=== PATIENT | male | born 1995 | race Caucasian/White ===

== ENCOUNTER 2016-11-22 00:54 | Emergency (ER) | payer OTHER ==
[2016-11-22 01:31] VITALS: BP 133/83
--- NOTE | 2016-11-22 02:53 | ED ---
Head Injury - HPI Summary HPI Summary: Patient was drinking alcohol and suffered a mechanical fall with subsequent right facial laceration. Denies LOC, N, V, NELSON, diplopia. No allev factors. TDAP is UTD. - History Of Current Complaint Chief Complaint: EDLacSutureRecheck Stated Complaint: HEAD LAC/FALL Time Seen by Provider: 11/22/16 01:20 Hx Obtained From: Patient, Family/[place] - Girlfriend and Friend available and not intoxicated helping with HPI. Mechanism Of Injury: Blunt Trauma Severity Currently: None Severity Initially: Mild Pain Intensity: 4 - Allergies/Home Medications Allergies/Adverse Reactions: Allergies Allergy/AdvReac Type Severity Reaction Status Date / Time No Known Allergies Allergy Verified 11/22/16 00:57 PMH/Surg Hx/FS Hx/Imm Hx Previously Healthy: Yes Infectious Disease History: No Infectious Disease History: Denies: Traveled Outside the [place] in Last 30 Days - Social History Alcohol Use: Occasionally Substance Use Type: Reports: None Smoking Status (MU): Never Smoked Tobacco Review of Systems Negative: Blurred Vision, Diplopia All Other Systems Reviewed And Are Negative: Yes Physical Exam Triage Information Reviewed: Yes Vital Signs On Initial Exam: Initial Vitals Temp Pulse Resp BP Pulse Ox 98.4 F 110 20 167/88 98 11/22/16 00:57 11/22/16 00:57 11/22/16 00:57 11/22/16 00:57 11/22/16 00:57 Vital Signs Reviewed: Yes Appearance: Positive: Well-Appearing, No Pain Distress, Well-Nourished Skin: Positive: Warm, Skin Color Reflects Adequate Perfusion, Dry, Other - 3 cm transverse and 2 cm oblique linear lacerations across the R eyebow on the lateral edge. Both are through the epidermis and dermis. No surrounding crepitus. Head/Face: Positive: Normal Head/Face Inspection Eyes: Positive: Normal, EOMI, LIDIA ENT: Positive: Normal ENT inspection, Hearing grossly normal, Pharynx normal Neck: Positive: Supple, Nontender Respiratory/Lung Sounds: Positive: Clear to Auscultation, Breath Sounds Present Cardiovascular: Positive: Normal, RRR, Pulses are Symmetrical in both Upper and Lower Extremities Abdomen Description: Positive: Nontender, No Organomegaly, Soft Musculoskeletal: Positive: Normal, Strength/ROM Intact Neurological: Positive: Normal, Sensory/Motor Intact, Alert, Oriented to Person Place, Time, CN Intact II-III, Normal Gait. Negative: Cerebellar Dysfunction Procedures - Laceration/Wound Repair 2 Location: face - 3 cm transverse and 2 cm oblique linear lacerations across the R eyebow on the lateral edge. Both are through the epidermis and dermis. Description: Linear Anesthesia: Local, 1.0% Betadine Prep?: Yes Irrigated w/ Saline (ccs): 100 Laceration/Wound Explored: clean Closure: Single Layer Suture Type: Chromic Number of Sutures: 16 Layer Closure?: No Sterile Dressing Applied?: Yes Diagnostics - Vital Signs Vital Signs Temp Pulse Resp BP Pulse Ox 11/22/16 01:31 101 17 133/83 98 11/22/16 00:57 98.4 F 110 20 167/88 98 - Laboratory Lab Statement: Any lab studies that have been ordered have been reviewed, and results considered in the medical decision making process. Head Injury Course/Dx - Diagnoses Differential Diagnosis/HQI/PQRI: Intracranial Bleed, Laceration, Orbital Fracture Provider Diagnoses: Facial laceration Discharge - Discharge Plan Condition: Improved Disposition: HOME Patient Education Materials: Facial Laceration (ED) Referrals: [facility] JOSUÉ Singh [Primary Care Provider] -
--- NOTE | 2016-11-22 08:00 | RAD ---
INDICATION: Head injury. COMPARISON: There are no prior studies available for comparison. TECHNIQUE: Contiguous axial sections of the brain were obtained from the skull base to the vertex without contrast. FINDINGS: The ventricles, cisterns and sulci are within normal limits. No significant focal abnormality or mass effect is seen. There is no evidence for hemorrhage. There is focal soft tissue swelling anterior to the right orbit and frontal bone. No fracture is seen. The visualized portion of the paranasal sinuses and mastoid air cells appear clear. IMPRESSION: NO EVIDENCE FOR ACUTE INTRACRANIAL ABNORMALITY.
== END 2016-11-22 02:52 | disposition home or self-care (01) ==
LOC: ED 00:54
DX: S01.111A Laceration without foreign body of right eyelid and periocular area, initial encounter (principal); W19.XXXA Unspecified fall, initial encounter; Y92.9 Unspecified place or not applicable
CPT/HCPCS: 12013; 70450; 99282